=== PATIENT | female | born 1995 | race Caucasian/White ===

== ENCOUNTER 2018-10-27 02:25 | Emergency (ER) | payer MEDICAID, OTHER ==
[~2018-10-27] VITALS: Ht 157.5 cm; Wt 70.0 kg
[2018-10-27 02:28] VITALS: BP 111/53; PULSE 82; RESP 16; Ht 157.5 cm; Wt 70.0 kg
[2018-10-27] MEDS ORDERED: ACETAMINOPHEN 325 MG TAB PO ONE (05:00)
[2018-10-27] MEDS ORDERED: NITR-58 PO (06:04)
--- NOTE | 2018-11-01 08:00 | ERD ---
ER Documentation Chief Complaint Chief Complaint 7 weeks preg with intermittent hot spells x 3 days, + vomiting last night HPI 22-year-old female presenting with intermittent waves of hot spells with cramping and vomiting. Patient states that she had some spotting a few days ago but no heavy bleeding today. She is about 7 weeks LNMP September 04. G2, . Patient does not currently have a clinic and has not had an ultrasound at this date. Denies medical problems. NKDA. Surgical history denies. Social history denies ROS All systems reviewed and are negative except as per history of present illness. Medications Home Meds Active Scripts Nitrofurantoin Monohyd Macrocr* (Macrobid*) 100 Mg Capsr, 100 MG PO HS for 7 Days, CAP Prov:GLENDY BARRETT PA-C 10/27/18 Allergies Allergies: Coded Allergies: No Known Allergy (Unverified , 10/27/18) PMhx/Soc Medical and Surgical Hx: pt denies Medical Hx, pt denies Surgical Hx Hx Alcohol Use: No Hx Substance Use: No Hx Tobacco Use: No Smoking Status: Never smoker FmHx Family History: No diabetes, No coronary disease, No other Physical Exam Physical Exam GENERAL: The patient is well-appearing, well-nourished, in no acute distress CHEST: Clear to auscultation bilaterally. There are no rales, wheezes or rhonchi. HEART: Regular rate and rhythm. No murmurs, clicks, rubs or gallops. ABDOMEN:Soft, nontender and nondistended. Good bowel sounds. No rebound or guarding. No gross peritonitis. No gross organomegaly or masses. BACK: No midline or flank tenderness. Results 24 hrs Laboratory Tests Test 10/27/18 05:00 White Blood Count 14.2 10^3/ul Red Blood Count 5.13 10^6/ul Hemoglobin 13.6 g/dl Hematocrit 41.0 % Mean Corpuscular Volume 79.9 fl Mean Corpuscular Hemoglobin 26.5 pg Mean Corpuscular Hemoglobin Concent 33.2 g/dl Red Cell Distribution Width 12.8 % Platelet Count 333 10^3/UL Mean Platelet Volume 9.3 fl Immature Granulocytes % 0.300 % Neutrophils % 75.4 % Lymphocytes % 18.5 % Monocytes % 4.9 % Eosinophils % 0.4 % Basophils % 0.5 % Nucleated Red Blood Cells % 0.0 /100WBC Immature Granulocytes # 0.040 10^3/ul Neutrophils # 10.7 10^3/ul Lymphocytes # 2.6 10^3/ul Monocytes # 0.7 10^3/ul Eosinophils # 0.1 10^3/ul Basophils # 0.1 10^3/ul Nucleated Red Blood Cells # 0.0 10^3/ul Urine Color YELLOW Urine Clarity SLIGHTLY CLOUDY Urine pH 6.0 Urine Specific [place] 1.024 Urine Ketones 2+ mg/dL Urine Nitrite NEGATIVE mg/dL Urine Bilirubin NEGATIVE mg/dL Urine Urobilinogen NEGATIVE mg/dL Urine Leukocyte Esterase 1+ [place]/ul Urine Microscopic RBC 1 /HPF Urine Microscopic WBC 13 /HPF Urine Squamous Epithelial Cells MODERATE /HPF Urine Mucus MODERATE /HPF Urine Hemoglobin NEGATIVE mg/dL Urine Glucose NEGATIVE mg/dL Urine Total Protein NEGATIVE mg/dl Beta HCG, Quantitative 19774.0 mIU/ml Current Medications Medications Dose Sig/Toñito Start Time Status Last (Trade) Ordered Route PRN Stop Time Admin Dose Reason Admin 650 mg ONCE ONCE 10/27/18 DC Acetaminophen PO 05:00 (Tylenol 10/27/18 05:01 Tab) Procedures/MDM DIAGNOSTIC IMAGING REPORT Patient: ALISA WEINBERG : 1995 Age: 22 Sex: F MR #: [id number] DOS: 10/27/18 0439 Ordering MD: DREA BARRETT PA-C Location: [facility] Room/Bed: PROCEDURE: US Pelvis/OB. CLINICAL INDICATION: Pelvic pain TECHNIQUE: Multiple sonographic images of the pelvis were obtained utilizing a transabdominal and endovaginal technique. The images were reviewed on a PACS workstation. COMPARISON: None. FINDINGS: There is a small cystic structure within the endometrium measuring 1.3 cm which would correspond to a calculated gestational age of 6 weeks and 0 days. No pole or yolk sac is yet visualized. The ovaries are normal. No abnormal adnexal masses are present. The right ovary measures 3.2 x 2.0 x 1.8 cm. The left ovary measures 3.5 x 2.7 x 2.3 cm. No significant free fluid is present within the pelvis. RPTAT: AA IMPRESSION: Possible early intrauterine at 6 weeks and 0 days versus blighted ovum. No pole or yolk sac is yet visualized. Close followup ultrasound and hCG is recommended. MDM: 22-year-old female presenting with cramping. Patient has findings consistent with urinary tract infection. Patient is told to return in 2 days for recheck of beta-hCG given there is incomplete noted on ultrasound with an elevated beta hCG levels. Patient does not require RhoGam as she is Rh+ and is not having vaginal bleeding. Patient is hemodynamically stable. Patient does not have lateralized pelvic pain I have low suspicion for ectopic however recommend close follow-up to monitor status of . Patient is told symptoms change or worsen to return immediately to the ER. Patient is recommended follow-up primary care. All questions answered at discharge Departure Diagnosis: Primary Impression: UTI (urinary tract infection) Condition: Stable Patient Instructions: Understanding Urinary Tract Infections (UTIs) Referrals: [facility] YOU HAVE RECEIVED A MEDICAL SCREENING EXAM AND THE RESULTS INDICATE THAT YOU DO NOT HAVE A CONDITION THAT REQUIRES URGENT TREATMENT IN THE EMERGENCY DEPARTMENT. FURTHER EVALUATION AND TREATMENT OF YOUR CONDITION CAN WAIT UNTIL YOU ARE SEEN IN YOUR DOCTORS OFFICE WITHIN THE NEXT 1-2 DAYS. IT IS YOUR RESPONSIBILITY TO MAKE AN APPOINTMENT FOR FOLOW-UP CARE. IF YOU HAVE A PRIMARY DOCTOR --you should call your primary doctor and schedule an appointment IF YOU DO NOT HAVE A PRIMARY DOCTOR YOU CAN CALL OUR PHYSICIAN REFERRAL HOTLINE AT IF YOU CAN NOT AFFORD TO SEE A PHYSICIAN YOU CAN CHOSE FROM THE FOLLOWING [facility] [address] [facility]. [facility] [address] [facility] [address] [facility] [address] [facility] [facility] [address] [facility]. [facility]. [address] Additional Instructions: FOLLOW UP WITH YOUR PRIMARY CARE PHYSICIAN TOMORROW.Return to this facility if you are not improving as expected. GLENDY BARRETT PA-C Nov 01, 2018 07:59
== END 2018-10-27 06:52 | disposition home or self-care (01) ==
LOC: FTE 02:25
DX: O23.41 Unspecified infection of urinary tract in pregnancy, first trimester (principal); R10.2 Pelvic and perineal pain; Z3A.01 Less than 8 weeks gestation of pregnancy
CPT/HCPCS: 36415; 76801; 76817; 81001; 84702; 85025; 86900; 86901; Z7502